=== PATIENT | male | born 1970 | race American Indian/Alaskan Native ===

== ENCOUNTER 2018-09-22 06:51 | Day surgery (SDC) | payer OTHER ==
[2018-09-22 08:42] VITALS: BP 112/75
[2018-09-22 09:18] LABS: Blood Urea Nitrogen 15 mg/dL (9-20)
--- NOTE | 2018-09-22 10:50 | Cat Scan Report ---
CT NECK WITH CONTRAST: HISTORY: Left neck node, mass, swelling. TECHNIQUE: Helical CT following IV contrast. Sagittal and coronal reformatted images. FINDINGS: A marker is placed on the left upper neck at the site of a palpable mass per the patient. Underlying this marker, there is a normal appearing left submandibular gland and a few scattered benign-appearing left submental lymph nodes. There is no evidence for suspicious mass or lymphadenopathy. There are scattered similar benign-appearing lymph nodes in both submental regions and jugular chains. The submandibular glands are symmetric and unremarkable. No obvious salivary mass or stones. The remaining soft tissue structures of the neck are within normal limits. The vascular structures are patent. Normal thyroid gland. There is mild mucosal thickening in the visualized ethmoid, maxillary and sphenoid sinuses. The left postero-lateral maxillary sinus wall is absent. Correlate for surgery in this area. There is also been previous left temporal craniotomy changes and surgical changes in the left temporal lobe, correlate with history. Impression: No suspicious left neck mass is identified for biopsy. See above. Mild chronic sinusitis. Surgical changes as described.
== END 2018-09-22 11:30 | disposition home or self-care (01) ==
LOC: CATHLABREC 06:51 → EDSTATUS 07:30 → CATHLABREC 11:30
PROVIDERS: ATTEND Otolaryngology
DX: R22.1 Localized swelling, mass and lump, neck (principal); J32.8 Other chronic sinusitis; Z79.899 Other long term (current) drug therapy; Z98.890 Other specified postprocedural states; Z88.8 Allergy status to other drugs, medicaments and biological substances
CPT/HCPCS: 36415; 70491; 82565; 84520; Q9967